=== PATIENT | female | born 2000 | race Caucasian/White ===

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

== ENCOUNTER 2020-11-18 11:49 | Emergency (ER) | payer OTHER, SELFPAY ==
[2020-11-18 11:55] VITALS: BP 129/62; PULSE 84; RESP 20; TEMP 36.5; O2SAT 98; BMI 27.4
--- NOTE | 2020-11-18 12:10 | HMH.EDUTC ---
[facility] [place] Impression: Pilonidal abscess, Cellulitis and abscess of buttock Disposition: Home, Self-Care Condition on Discharge: Good Instructions: Cellulitis, DI for Pilonidal Cyst Drainage or Removal Additional Instructions: Follow up with your primary care physician. Follow up with your surgeon. I put in a referral to Dr. Edge (surgeon that you saw before), please call his office for any appointment. Take the medications as directed. GO TO THE ER FOR ANY WORSENING SYMPTOMS OR CONCERNS, ESPECIALLY ANY FEVER, CHILLS OR SIGNS OF WORSENING INFECTION FOLLOW UP IN 3 DAYS TO HAVE THE PACKING REMOVED. Prescriptions: Ibuprofen [Ibuprofen 800mg Tablet] 800 mg PO Q8HP PRN #30 tab PRN Reason: Moderate Pain Transmission Status: Received by [facility]/pharmacy #[id number] Sulfamethoxazole/Trimethoprim [Bactrim DS tablet] 1 each PO BID 10 Days #20 tab Transmission Status: Received by [facility]/pharmacy #[id number] cephALEXin [cephALEXin 500mg capsule] 500 mg PO Q6H 10 Days #40 cap Transmission Status: Received by [facility]/pharmacy #[id number] Referrals: PCP,No [Primary Care Provider] - Forms: Work/School Release Time of Disposition: 12:54 Medical Decision Making - Medical Records Medical records reviewed: No: I reviewed the patient's medical records. - Larry Inquiry Pt receiving controlled substance: No Vital Signs: 11/18/20 11:55 11/18/20 12:55 Temperature 97.7 F 97.7 F Temperature Source Oral Pulse Rate 84 Pulse Rate [Right Brachial] 84 Respiratory Rate 20 20 Blood Pressure 129/62 Blood Pressure [Right Arm] 129/62 Blood Pressure Mean [Right Arm] 84 Blood Pressure Source [Right Arm] Automatic Cuff Blood Pressure Position [Right Arm] Sitting 02 Sat by Pulse Oximetry 98 Oxygen Delivery Method Room Air Orders (Tests/Meds): ORDERS Category Date Time Status Wound Culture and Gram Stain Stat Micro 11/18/20 12:50 [place] [facility] [place] - General Stated complaint: cyst on buttocks, top of tailbone Time Seen by Provider: 11/18/20 12:10 Mode of Arrival: Ambulatory Source of Information: Patient Limitations: No Limitations Description of Symptoms (Recalled from Triage Doc. by RN): PATIENT C/O CYST ON TAILBONE X 1 WEEK HEENT Symptoms (Recalled from RN notes): No Resp Symptoms (Recalled from RN notes): No Skin Symptoms (Recalled from RN notes): Yes MS Symptoms (Recalled from RN notes): No Functional Status (Recalled from RN notes): WNL - History of Present Illness Provider Complaint: She states that for the past 1 week she has had a painful area of swelling near the tip of her coccyx. She has had to have pilonidal cysts i&d'd multiple times in her life. The last times was around 2 years ago. She denies any fever or chills or complaints. - Related Data Previous Rx's Medication Instructions Recorded Ibuprofen [Ibuprofen 800mg 800 mg PO Q8HP PRN #30 tab 11/18/20 Tablet] Sulfamethoxazole/Trimethoprim 1 each PO BID 10 Days #20 tab 11/18/20 [Bactrim DS tablet] cephALEXin [cephALEXin 500mg 500 mg PO Q6H 10 Days #40 cap 11/18/20 capsule] Allergies Allergy/AdvReac Type Severity Reaction Status Date / Time No Known Allergies Allergy Verified 11/14/18 10:03 - Worker's Comp Is this a Worker's Comp case?: No [facility] History - Hepatitis A Screen Drug use history?: No High risk sexual behaviors?: No History of sexually transmitted infection?: No Currently employed?: No Childcare worker?: No Do you have indoor plumbing?: Yes Do you have electricity?: Yes Attestation statement:: This patient has been screened for Hepatitis A risk factors. I have reviewed the patient's past medical history: Yes Medical History: Denies:: Cancer, Diabetes Mellitus Type 1, Diabetes Mellitus Type 2, MRSA Laterality Cases: Bilateral: Tonsillectomy Amputation: No Fractures: No - Social History Smoking Status: Current every day smoker Tobacco Type: cigarettes # Packs/Day (cigarettes)
[2020-11-18 12:55] VITALS: BP 129/62; PULSE 84; RESP 20; TEMP 36.5; O2SAT 98
== END 2020-11-18 12:58 | disposition home or self-care (01) ==
PROVIDERS: Emergency Provider Nurse Practitioner Family
DX: L05.01 Pilonidal cyst with abscess (principal); F17.210 Nicotine dependence, cigarettes, uncomplicated
CPT/HCPCS: 10080; 87070; 87077; 87186; 87205; 99202; G0463

== ENCOUNTER 2021-01-26 20:14 | Emergency (ER) | payer OTHER, SELFPAY ==
[2021-01-26 20:20] VITALS: BP 117/78; PULSE 99; RESP 16; TEMP 36.7; O2SAT 99; BMI 27.3
[2021-01-26 20:32] VITALS: BP 117/78; PULSE 99; RESP 16; TEMP 36.7; O2SAT 99; BMI 27.4
--- NOTE | 2021-01-26 20:40 | HMH.EDUTC ---
[facility] [place] Clinical [place]ression: Allergic reaction Qualifiers: Encounter type: initial encounter Qualified Code(s): T78.40XA - Allergy, unspecified, initial encounter Disposition: Home, Self-Care Condition on Discharge: Fair Instructions: DI for General Allergic Reactions, DI for Pereira, Prednisone, Cephalexin Additional Instructions: Apply neosporin to pereira on scalp, may apply to fingers and then work your way onto the skin to burn areas on your scalp Take medication as prescribed Start oral steriods tomorrow Follow up with your Family Doctor for further evaluation and make sure that areas are healing Follow up with Dermatology for further evaluation and treatment if needed Straight to ER if any life threatening symptoms Be careful washing your hair Follow up immediately if any worsening of swelling or fever Prescriptions: cephALEXin [cephALEXin 500mg capsule*] 500 mg PO Q6H 10 Days #40 cap Transmission Status: Pending to [id number] predniSONE [Prednisone 10mg Tab Dose-Pack] 10 mg PO UD DOSE PK 6 Days #21 pack Transmission Status: Pending to [id number] Referrals: PCP,No [Primary Care Provider] - As needed Danile Mendoza MD [Referring] - As needed (Call office for appointment your referral was sent) Forms: Work/School Release Time of Disposition: 21:03 Medical Decision Making - Larry Inquiry Pt receiving controlled substance: No Larry was queried for this patient: No Vital Signs: 01/26/21 20:20 01/26/21 20:32 Temperature 98.1 F 98.1 F Temperature Source Oral Oral Pulse Rate [Left Radial] 99 H 99 H Respiratory Rate 16 16 Blood Pressure [Left Arm] 117/78 117/78 Blood Pressure Mean [Left Arm] 91 91 Blood Pressure Source [Left Arm] Automatic Cuff Automatic Cuff Blood Pressure Position [Left Arm] Sitting Sitting 02 Sat by Pulse Oximetry 99 99 Oxygen Delivery Method Room Air Room Air Medical Decision Narrative: Patient denies chance of states that she currently just stopped her menstrual period. Patient states that she has had similar reaction to hair dye before and had to shave her head to get lesions in her head to clear up. Due to drainage of yellowish in color concern for infection Patient will be placed on oral Keflex and oral steriods and have patient follow up with Dermatology and/or PCP [facility] [place] - General Stated complaint: reaction from hair dye Time Seen by Provider: 01/26/21 20:40 Mode of Arrival: Ambulatory Source of Information: Patient Description of Symptoms (Recalled from Triage Doc. by RN): Pt reports scalp irritation d/t hair dye. She reports itching to scalp and oozing for 2 or 3 days. Pt denies issues with breathing. Airway patent. Pt reports having same reaction to hait dye when she was 17. - History of Present Illness Provider Complaint: Patient states that she has had reaction to hair dye in the past States that 2-3 days ago she used hair dye on her hair and she had allergic reaction and started having burning in her scalp and swelling with rash on her forehead and swelling on the left side of her forehead States that she immediately rinsed it out and took benadryl States that she has continued to take benadryl on and off but still having rash and swelling in her scalp with oozing from blister like areas on her scalp States that she was worried it was getting infected and when she did this before she had to have steroids to clear it up Denies SOA - Related Data Previous Rx's Medication Instructions Recorded cephALEXin [cephALEXin 500mg 500 mg PO Q6H 10 Days #40 cap 01/26/21 capsule*] predniSONE [Prednisone 10mg Tab 10 mg PO UD DOSE PK 6 Days #21 pack 01/26/21 Dose-Pack] Allergies Allergy/AdvReac Type Severity Reaction Status Date / Time No Known Allergies Allergy Verified 11/14/18 10:03 - Worker's Comp Is this a Worker's Comp case?: No H History - Hepatitis A Screen Drug use history?: No High risk sexual behav
[2021-01-26 20:57] VITALS: BP 117/78; PULSE 99; RESP 16; TEMP 36.7; O2SAT 99
== END 2021-01-26 21:15 | disposition home or self-care (01) ==
LOC: UTC 21:01
PROVIDERS: Emergency Provider Nurse Practitioner
DX: L23.4 Allergic contact dermatitis due to dyes (principal); F17.210 Nicotine dependence, cigarettes, uncomplicated
CPT/HCPCS: 96372; 99202; G0463

== ENCOUNTER 2021-01-27 09:44 | Emergency (ER) | payer OTHER, SELFPAY ==
--- NOTE | 2021-01-27 09:59 | HMH.EDUTC ---
[facility] [place] Impression: Allergic reaction to hair dye Disposition: Home, Self-Care Condition on Discharge: Good Instructions: DI for Adverse Drug Reaction -- Allergic Additional Instructions: Get started on the medications that were prescribed on your visit last night. Start the oral steroids either this evening or in the morning. If you have any chest tightness or difficulty breathing, please go straight to the er. Referrals: PCP,No [Primary Care Provider] - Forms: Work/School Release Time of Disposition: 10:31 Medical Decision Making - Medical Records Medical records reviewed: No: I reviewed the patient's medical records. - Larry Inquiry Pt receiving controlled substance: No Vital Signs: 01/27/21 10:02 01/27/21 10:26 Temperature 98.5 F 98.5 F Temperature Source Oral Pulse Rate 92 H Pulse Rate [Right] 100 H Respiratory Rate 14 18 Blood Pressure 122/95 H Blood Pressure [Right Arm] 125/106 H Blood Pressure Mean [Right Arm] 112 Blood Pressure Source [Right Arm] Automatic Cuff Blood Pressure Position [Right Arm] Sitting 02 Sat by Pulse Oximetry 98 Oxygen Delivery Method Room Air Orders (Tests/Meds): ED MEDICATIONS Discontinued Medications Generic Name Dose Route Start Last Admin Trade Name Cabreraq PRN Reason Stop Dose Admin Methylprednisolone Sodium Succinate 62.5 mg 01/27/21 10:16 01/27/21 10:26 Methylprednisolone Sod Succ 125mg Vial IM 01/27/21 10:17 62.5 mg ONCE ONE [facility] [place] - General Stated complaint: face swollen,SOA Time Seen by Provider: 01/27/21 10:10 - History of Present Illness Provider Complaint: She tried to dye her hair 4 days ago. She has a history of having allergic reaction to hair dyes. She began to have breakout and itching of the scalp afterwards. Since then she has had swelling and outbreak of her scalp and some facial swelling. She was in this [facility] last night and was given steroid shot and prescribed medication. She has not started or picked up her prescribed medication. She returned here today for some continued facial swelling. She denies any shortness of breath and mouth swelling. - Related Data Previous Rx's Medication Instructions Recorded cephALEXin [cephALEXin 500mg 500 mg PO Q6H 10 Days #40 cap 01/26/21 capsule*] predniSONE [Prednisone 10mg Tab 10 mg PO UD DOSE PK 6 Days #21 pack 01/26/21 Dose-Pack] Allergies Allergy/AdvReac Type Severity Reaction Status Date / Time No Known Allergies Allergy Verified 01/27/21 09:45 [facility] History - Hepatitis A Screen Attestation statement:: This patient has been screened for Hepatitis A risk factors. I have reviewed the patient's past medical history: Yes Medical History: Denies:: Cancer, Diabetes Mellitus Type 1, Diabetes Mellitus Type 2, MRSA Laterality Cases: Bilateral: Tonsillectomy Amputation: No Fractures: No - Social History Smoking Status: Current every day smoker Tobacco Type: cigarettes # Packs/Day (cigarettes): 1 Alcohol Intake: never Substance Use Type: denies use Occupational Status: other Housing: house Household Members: family Family Hx:: Asthma, Coronary Artery Disease, Diabetes, Heart Attack, Hyperlipidemia, Hypertension, Stroke ROS Obtained: Yes All systems reviewed & no additional complaints - Constitutional Constitutional: Denies chills, Denies fever(s) - Eyes Eyes: Denies blurry vision, Denies change in vision, Denies eye discharge - ENT Ears, Nose, Mouth, and Throat: Denies dizziness, Denies otalgia, Denies sore throat, Denies vertigo/dizziness - Cardiovascular Cardiovascular: Denies chest pain - Respiratory Respiratory: Denies chest congestion, Denies cough, Denies stridor, Denies wheezing - Gastrointestinal Gastrointestingal: Denies: abdominal pain, diarrhea, nausea, vomiting - Musculoskeletal Musculoskeletal: Denies joint pain, Denies neck pain - Integumentary/Breasts Skin/Breast: Repo
[2021-01-27 10:02] VITALS: BP 125/106; PULSE 100; RESP 14; TEMP 36.9; O2SAT 98; BMI 27.6
[2021-01-27 10:26] VITALS: BP 122/95; PULSE 92; RESP 18; TEMP 36.9
== END 2021-01-27 10:35 | disposition home or self-care (01) ==
PROVIDERS: Emergency Provider Nurse Practitioner Family
DX: L23.4 Allergic contact dermatitis due to dyes (principal); F17.210 Nicotine dependence, cigarettes, uncomplicated
CPT/HCPCS: 96372; 99202; G0463

== ENCOUNTER 2022-07-13 15:18 | Emergency (ER) | payer OTHER, SELFPAY ==
--- NOTE | 2022-07-13 15:49 | EXP.UTC ---
Discharge Plan Disposition Patient Disposition: Home, Self-Care Condition: Good Referrals Follow up/Referrals: Provider,Referral, [Primary Care Provider] - See instructions Activity Restrictions/Add. Instructions Additional Instructions/Restrictions: Keep the wound clean and dry. Watch the for signs of infection, such as redness, swelling, drainage, fever. etc. Take tylenol or ibuprofen for pain. Follow up with your regular doctor. Return in 7 days to have the sutures removed. GO TO THE ER FOR ANY WORSENING SYMPTOMS OR CONCERNS. Clinical Impressions Clinical Impression: Encounter for Nexplanon removal Instructions Patient Instructions: DI for Laceration Repair -- Simple Discharge ED Provider: Kraig Grant [facility] General Stated complaint: irrated control in L AMN Time Seen by Provider: 07/13/22 15:49 History of Present Illness Provider Complaint: She is has a nexplanon implant in her left upper arm. She states that it has been almost 4 years since this was inserted. Her son recently pinched this area of her arm. Since then she has had tenderness at the site. She would like to have it removed. She has not had time to go to her police detention attendant to have it removed because her son has a lot of health issues. Related Data Allergies Allergy/AdvReac Type Severity Reaction Status Date / Time No Known Allergies Allergy Verified 07/13/22 15:59 [facility] Social History Smoking Status: Former smoker alcohol intake: never substance use type: denies use current occupational status: employed Travel in the last 8 weeks: None household members: family housing: house ROS Obtained: Yes All systems reviewed & no additional complaints except as documented Constitutional Constitutional: Reports system reviewed and no additional complaints, except as documented, Denies chills and Denies fever(s) Eyes Eyes: Denies eye discharge ENT Ears, Nose, Mouth, and Throat: Denies dysphagia, Denies sore throat and Denies throat swelling Cardiovascular Cardiovascular: Denies chest pain and Denies dyspnea Respiratory Respiratory: Denies chest congestion, Denies cough and Denies dyspnea Gastrointestinal Gastrointestingal: Denies abdominal pain, constipation, diarrhea, dysphagia, nausea or vomiting Musculoskeletal Musculoskeletal: Denies arthralgias Integumentary/Breasts Skin/Breast: Denies rash Neurologic Neurologic: Denies paresthesias Allergic/Immunologic Allergic/Immunologic: Denies throat swelling Physical Exam General General appearance: alert and in no apparent distress Head Head exam: atraumatic, normocephalic and normal inspection Eye Eye exam: Present normal appearance, PERRL and EOMI ENT ENT exam: Present normal exam, normal oropharynx, mucous membranes moist, TM's normal bilaterally and normal external ear exam Neck Neck exam: Present normal inspection, full ROM and trachea midline; Absent meningismus or lymphadenopathy Chest Chest inspection: Present normal inspection and symmetric chest wall rise; Absent tenderness Respiratory Respiratory exam: Present normal lung sounds bilaterally; Absent respiratory distress Cardiovascular Cardiovascular exam: Present regular rate and normal rhythm; Absent JVD Abdominal Exam Abdominal exam: Present soft and normal bowel sounds; Absent distention, tenderness or guarding Extremities Exam Extremities exam: Present normal inspection, full ROM and normal capillary refill; Absent calf tenderness Back Exam Back exam: Present normal inspection; Absent tenderness Neurological Exam Neurological exam: Present alert and oriented X3 Psychiatric Psychiatric exam: Present normal affect and normal mood Skin Skin exam: Present warm, dry, intact and normal color Lymphatic Lymphatic Findings: no adenopathy Medical Decision Making Medical Records Medical records reviewed: No I reviewed the patient's medical records.
[2022-07-13 15:56] VITALS: BP 145/96; PULSE 88; RESP 16; TEMP 36.9; O2SAT 99; BMI 27.4
[2022-07-13 16:52] VITALS: BP 145/96; PULSE 88; RESP 16; TEMP 36.9
== END 2022-07-13 17:06 | disposition home or self-care (01) ==
PROVIDERS: Emergency Provider Nurse Practitioner Family
DX: Z30.432 Encounter for removal of intrauterine contraceptive device (principal)
CPT/HCPCS: 99212; G0463

== ENCOUNTER 2022-10-31 10:49 | Emergency (ER) | payer OTHER, SELFPAY ==
[2022-10-31 10:51] VITALS: BP 134/71; PULSE 70; RESP 17; TEMP 36.9; O2SAT 100; BMI 22.3
--- NOTE | 2022-10-31 11:32 | HMH.EDGENADL ---
Discharge Plan Disposition Patient Disposition: Home, Self-Care Condition: Good Referrals Follow up/Referrals: Melissa Leiva DO [Staff Physician] - See instructions Provider,MD Alisha [Primary Care Provider] - See instructions Activity Restrictions/Add. Instructions Additional Instructions/Restrictions: No strenuous activity or sexual intercourse for 2 days. Return the emergency department if severe pain or severe bleeding. Follow-up with Dr. Johnson, ASSISTANT [employer]NER, call for appointment. Clinical Impressions Clinical Impression: , threatened Instructions Patient Instructions: DI for Threatened Discharge ED Provider: Gerard Adkins General Adult HPI General Chief complaint: Vaginal Bleeding Stated complaint: about 8 weeks , bleeding, stomach pain Time Seen by Provider: 10/31/22 11:28 Mode of Arrival: Ambulatory Limitations: No Limitations Description of Symptoms (Recalled from ER Triage Doc. 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 STATES SHE WOKE THIS AM WITH LOWER ABDOMINAL PAIN AND BRIGHT RED BLEEDING, HAS SINCE STOPPED History of Present Illness HPI narrative: Patient states that she is , about 6 to 8 weeks based on last normal menstrual period of 08/23/2022, and now has suprapubic abdominal pain and vaginal bleeding. She says symptoms started this morning. The bleeding was spotting, only a few drops of red blood, currently resolved. However, the suprapubic pain has continued. She is 2, para 1. She has had a section. She says that her primary care provider ordered blood work to determine how far along she was in , she had blood work drawn on Saturday, but does not yet know results. Blood work was done at a different facility in [facility]. Related Data Allergies Allergy/AdvReac Type Severity Reaction Status Date / Time No Known Allergies Allergy Verified 07/13/22 15:59 [facility] Disclaimer: The information contained in this section may have been updated after the patient was seen, as this information can be updated by other users. Social History Smoking Status: Former smoker alcohol intake: never substance use type: denies use current occupational status: employed Travel in the last 8 weeks: None household members: family housing: house ROS Obtained: Yes Systems reviewed as appropriate & no additional complaints except as documented Gastrointestinal Gastrointestingal: Reports abdominal pain; Denies vomiting Genitourinary Female Genitourinary: Reports abnormal vaginal bleeding and Denies difficulty voiding Physical Exam General General appearance: alert and in no apparent distress Head Head exam: atraumatic and normocephalic Eye Eye exam: Present normal appearance and EOMI ENT ENT exam: Present mucous membranes moist Neck Neck exam: Present normal inspection and trachea midline Chest Chest inspection: Present normal inspection and symmetric chest wall rise Respiratory Respiratory exam: Absent respiratory distress Cardiovascular Cardiovascular exam: Present regular rate Abdominal Exam Abdominal exam: Present soft and normal bowel sounds; Absent distention, tenderness, guarding, rebound or rigidity Abdominal tenderness: Present RUQ, LLQ and suprapubic Extremities Exam Extremities exam: Present normal inspection Neurological Exam Neurological exam: Present alert and oriented X3 Psychiatric Psychiatric exam: Present normal affect and normal mood Skin Skin exam: Present warm and dry Medical Decision Making Larry Inquiry Pt receiving controlled substance: No Vital Signs: 10/31/22 10:51 10/31/22 12:19 10/31/22 12:31 Temperature 98.4 F Temperature Source Oral Pulse Rate [Radial] 70 Respiratory Rate 17 Blood Pressure 105/68 L 98/48 L Blood Pressure [Right Arm] 134/71 Blood Pressure Mean 83 64 Bloo
--- NOTE | 2022-10-31 11:39 | PC.NURSE ---
rounded on pt to see if there were any needs and pt had no needs at this time
[2022-10-31 11:54] LABS: Basophils # 0.1 K/mm3 (0-0.2); Eosinophils # 0.2 K/mm3 (0.0-0.4); Eosinophils % 2.7 % (0.1-12.0); Hematocrit 42.8 % (37.0-47.0); Lymphocytes # 1.8 K/mm3 (0.7-4.5); Lymphocytes % 23.3 % (10-50); Mean Corpuscular HGB Conc 32.8 g/dL (31.8-35.4); Mean Corpuscular Volume 97.6 fl (81-99); Monocytes # 0.4 K/mm3 (0.1-1.0); Monocytes % 4.6 % (1.7-9.3); Neutrophils # 5.4 K/mm3 (1.8-7.8); Neutrophils % 68.5 % (37.0-80.0); Platelet Count 200 K/mm3 (142-424); Red Blood Count 4.38 M/mm3 (4.20-5.40); Red Cell Distribution Width 12.6 % (11.5-17.5); White Blood Count 7.8 K/mm3 (4.8-10.8)
[2022-10-31 12:07] LABS: Chloride 107 mmol/L (98-107); Sodium 139 mmol/L (136-145)
[2022-10-31 12:08] LABS: Potassium 3.9 mmoL/L (3.5-5.1)
[2022-10-31 12:10] LABS: Alanine Aminotransferase 18 U/L (12-78); Albumin Level 4.6 g/dl (3.5-5.0); Alkaline Phosphatase 44 U/L (38-126); Aspartate Amino Transferase 23 U/L (14-36); Bilirubin,Total 0.5 mg/dl (0.2-1.3); Blood Urea Nitrogen 12 mg/dl (7-17); Creatinine Clearance Estimated 164 mL/min (50-200); Estimated Glomerular Filt Rate 154 ml/min (>60); GFR (African American) 187 ML/MIN (>60)
[2022-10-31 12:11] LABS: Albumin/Globulin Ratio 1.6 (1.1-1.8); Anion Gap 14.9 mEq/L (5-15); Calcium 9.3 mg/dl (8.4-10.2); Carbon Dioxide 21 mmol/L (22.0-30.0); Globulin 2.8 g/dL (1.3-3.2); Glucose 111 mg/dl (74-100); Total Protein,Serum 7.4 g/dl (6.3-8.2)
[2022-10-31 12:19] VITALS: BP 105/68
[2022-10-31 12:31] VITALS: BP 98/48
[2022-10-31 13:00] VITALS: BP 136/95
--- NOTE | 2022-10-31 13:16 | US_ITS ---
FINAL REPORT CLINICAL HISTORY: , pain and bleeding FINDINGS: Transvaginal sonographic images of the pelvis were obtained. A gestational sac is present. A yolk sac and pole are identified. The crown-rump length is 2.7 mm corresponding with 5 weeks 6 days gestation. The heartbeat is identified measuring 104 beats per minute. There is a small amount of fluid adjacent to the gestational sac of uncertain significance. The ovaries are within normal limits. IMPRESSION: Single, living, intrauterine gestation with 5 weeks 6 days ultrasound age. Reviewed, Interpreted and Dictated by Naun Beavers III, MD Transcribed by Temitope Haskins Authenticated and [facility]
--- NOTE | 2022-10-31 13:17 | PC.NURSE ---
RADIOLOGY NOTIFIED OF U/S
[2022-10-31 13:19] LABS: Urine Pregnancy, HCG Qual. Positive (Negative)
--- NOTE | 2022-10-31 13:51 | PC.NURSE ---
pt to us at this time
--- NOTE | 2022-10-31 14:27 | PC.NURSE ---
PT RETURNED FROM US
[2022-10-31 14:45] LABS: Microscopic, Urine URINE MICROSCOPIC (MICROSCOPIC)
[2022-10-31 14:46] LABS: Appearance,Urine SL CLOUDY (Clear); Bilirubin,Urine Negative (Negative); Blood, Urine Negative (Negative); Color,Urine YELLOW (Yellow); Glucose,Urine (UA) Negative (Negative); Ketones,Urine TRACE (Negative); Leukocyte Esterase,Urine 1+ (Negative); Nitrate,Urine Negative (Negative); Protein,Urine Negative (Negative); Specific Gravity, Urine >= 1.030 (1.005-1.030); Urobilinogen,Urine 0.2 EU/dl (0.2)
[2022-10-31 14:51] LABS: Bacteria,Urine 1+ /lpf; RBC,Urine Occasional #/hpf (0-3)
--- NOTE | 2022-10-31 15:03 | PC.NURSE ---
DR. ROLDAN AT BEDSIDE TO UPDATE PT ON POC
--- NOTE | 2022-10-31 15:07 | PC.NURSE ---
ER Doctor needed to speak to whomever was controls project engineer for OBGYN. Made contact with Dr. Leiva and she was with a pt but would call back as soon as she come out
--- NOTE | 2022-10-31 15:09 | PC.NURSE ---
Dr Leiva called to speak with ER Doctor
--- NOTE | 2022-10-31 15:50 | PC.NURSE ---
DR. ROLDAN AT BEDSIDE TO DISCUSS RHOGAM WITH PT, LAB STATES PT IS A POSITIVE
[2022-10-31 15:55] VITALS: BP 122/78; PULSE 75; RESP 17; TEMP 36.8; O2SAT 99
--- NOTE | 2022-11-26 13:41 | PC.NURSE ---
attempted to call this pt about follow up care. No answer on multiple occasions.
== END 2022-10-31 15:55 | disposition home or self-care (01) ==
PROVIDERS: Emergency Provider Emergency Medicine
DX: O20.0 Threatened abortion (principal)
CPT/HCPCS: 36415; 76817; 80053; 81001; 81025; 84702; 85025; 86850; 87086; 87088; 87186; 99285

== ENCOUNTER → 2023-03-11 14:38 | Outpatient (CLI) | payer OTHER, SELFPAY ==
--- NOTE | 2023-03-11 14:38 | US_ITS ---
FINAL REPORT CLINICAL HISTORY: 20 week anatomy scan please use anatomy scan template FINDINGS: There is a single live intrauterine gestation. Presentation is cephalic. The cervix is closed and measures 2.8 cm. Placenta is anterior and grade 1. movement is noted. Cardiac activity is confirmed at 139 beats per minute. A cardiac arrhythmia is noted. Three-vessel cord with satisfactory umbilical cord insertion. Four-chamber heart is noted. brain and ventricles are unremarkable. Chest and diaphragm are unremarkable. ABDOMEN: Both kidneys are unremarkable. Stomach is unremarkable. SPINE: No anomalies identified. Both arms and legs noted. AMNIOTIC FLUID: Appropriate amount. MEASUREMENTS: ULTRASOUND AGE: 24 weeks 2 days. GESTATION AGE: 24 weeks 4 days. BPD: 6.0 cm consistent with 24 weeks 5 days. OFD: 7.4 cm consistent with 23 weeks 5 days. HC: 21.3 cm consistent with 23 weeks 3 days. FL: 4.5 cm consistent with 24 weeks 5 days. CEREBELLUM: 2.5 cm consistent with 24 weeks 4 days. HUMERUS: 4.0 cm consistent with 24 weeks 2 days. CI: 81% FL/BPD: 74% IMPRESSION: Single living IUP with an ultrasound age of 24 weeks 2 days. Heart arrhythmia noted. Recommend continued follow-up. Reviewed, Interpreted and Dictated by Naun Beavers III, MD Transcribed by Luiz Palmer Authenticated and . [facility]
[2023-03-11 16:51] LABS: Basophils % 0.4 % (0.1-2.0); Eosinophils # 0.1 K/mm3 (0.0-0.4); Eosinophils % 0.9 % (0.1-12.0); Hematocrit 38.2 % (37.0-47.0); Lymphocytes # 2.6 K/mm3 (0.7-4.5); Lymphocytes % 21.9 % (10-50); Mean Corpuscular HGB Conc 33.9 g/dL (31.8-35.4); Mean Corpuscular Volume 94.4 fl (81-99); Monocytes # 0.6 K/mm3 (0.1-1.0); Monocytes % 4.6 % (1.7-9.3); Neutrophils # 8.7 K/mm3 (1.8-7.8); Neutrophils % 72.3 % (37.0-80.0); Platelet Count 264 K/mm3 (142-424); Red Blood Count 4.05 M/mm3 (4.20-5.40); Red Cell Distribution Width 12.6 % (11.5-17.5)
[2023-03-13 12:19] LABS: Rapid Plasma Reagin Ab Titer Non Reactive (NonRea<1:1)
[2023-05-03 23:34] LABS: HIV Screen 4th Generation wRfx Non Reactive; Hepatitis B Surface Antigen Negative; Hepatitis C Antibody Non Reactive
== END ==
PROVIDERS: PCP Obstetrics & Gynecology; Visit Provider Obstetrics & Gynecology
DX: Z34.90 Encounter for supervision of normal pregnancy, unspecified, unspecified trimester (principal); Z3A.20 20 weeks gestation of pregnancy
CPT/HCPCS: 36415; 76811; 85025; 86593; 86703; 86762; 86850; 87340; 87380; G0432

== ENCOUNTER → 2023-04-08 09:54 | Outpatient (CLI) | payer OTHER, SELFPAY ==
[2023-04-08 10:23] LABS: Basophils % 0.3 % (0.1-2.0); Eosinophils # 0.1 K/mm3 (0.0-0.4); Eosinophils % 1.5 % (0.1-12.0); Hematocrit 35.7 % (37.0-47.0); Lymphocytes # 1.9 K/mm3 (0.7-4.5); Lymphocytes % 21.3 % (10-50); Mean Corpuscular HGB Conc 33.5 g/dL (31.8-35.4); Mean Corpuscular Volume 92.5 fl (81-99); Mean Platelet Volume 7.8 fl (7.4-10.4); Monocytes # 0.4 K/mm3 (0.1-1.0); Monocytes % 4.2 % (1.7-9.3); Neutrophils # 6.5 K/mm3 (1.8-7.8); Neutrophils % 72.7 % (37.0-80.0); Platelet Count 239 K/mm3 (142-424); Red Blood Count 3.85 M/mm3 (4.20-5.40); Red Cell Distribution Width 12.5 % (11.5-17.5)
[2023-04-08 10:36] LABS: Glucose,Fasting 90 mg/dl (74-100)
[2023-04-08 11:54] LABS: Glucose 1 Hour 167 mg/dL (74-100)
== END ==
PROVIDERS: Visit Provider Obstetrics & Gynecology
DX: Z34.92 Encounter for supervision of normal pregnancy, unspecified, second trimester (principal); Z3A.28 28 weeks gestation of pregnancy
CPT/HCPCS: 36415; 82951; 85025

== ENCOUNTER → 2023-04-12 07:01 | Outpatient (CLI) | payer OTHER, SELFPAY ==
[2023-04-12 07:42] LABS: Glucose,Fasting 92 mg/dl (74-100)
[2023-04-12 09:03] LABS: Glucose 1 Hour 183 mg/dL (74-100)
[2023-04-12 10:05] LABS: Glucose 2 Hour 101 mg/dL (74-100)
[2023-04-12 11:16] LABS: Glucose 3 Hour 79 mg/dL (74-100)
== END ==
PROVIDERS: Visit Provider Obstetrics & Gynecology
DX: Z34.93 Encounter for supervision of normal pregnancy, unspecified, third trimester (principal); Z3A.30 30 weeks gestation of pregnancy
CPT/HCPCS: 36415; 82951

== ENCOUNTER 2023-06-14 13:23 | Outpatient (CLI) | payer OTHER, SELFPAY ==
[2023-06-14 13:44] VITALS: BP 100/61; PULSE 98; RESP 18; TEMP 36.9; O2SAT 97; BMI 26.6
[2023-06-14 14:22] LABS: Microscopic, Urine URINE MICROSCOPIC (MICROSCOPIC)
[2023-06-14 14:28] LABS: Appearance,Urine CLEAR (Clear); Bilirubin,Urine Negative (Negative); Blood, Urine Negative (Negative); Color,Urine YELLOW (Yellow); Glucose,Urine (UA) Negative (Negative); Ketones,Urine Negative (Negative); Leukocyte Esterase,Urine Negative (Negative); Nitrate,Urine Negative (Negative); PH,Urine 6.5 (5.0-8.5); Protein,Urine Negative (Negative); Specific Gravity, Urine 1.015 (1.005-1.030); Urobilinogen,Urine 0.2 EU/dl (0.2)
[2023-06-14 14:33] LABS: Fetal Membrane Rupture (Rapid) Negative (Negative)
[2023-06-14 14:39] LABS: Amphetamine/Metha Screen,Urine Negative ng/ml (<1000); Barbiturates Screen,Urine Negative ng/ml (<200)
[2023-06-14 14:40] LABS: Benzodiazepines Screen,Urine Negative ng/ml (<200)
[2023-06-14 14:41] LABS: Cannabinoid Screen,Urine Positive ng/ml (<50); Cocaine Screen,Urine Negative ng/ml (<300)
[2023-06-14 14:42] LABS: Methadone Screen,Urine Negative ng/ml (<300); Opiate Screen,Urine Negative ng/ml (<300)
[2023-06-14 14:43] LABS: Phencyclidine Screen,Urine Negative ng/ml (<25)
[2023-06-14 14:49] LABS: Bacteria,Urine 1+ /lpf; Squamous Epithelial Cell,Urine 20-50 #/hpf (0-5)
== END 2023-06-14 15:04 | disposition home or self-care (01) ==
LOC: OBOUT 13:24 → OB 13:25
PROVIDERS: Visit Provider Obstetrics & Gynecology
DX: O26.893 Other specified pregnancy related conditions, third trimester (principal); Z3A.38 38 weeks gestation of pregnancy
CPT/HCPCS: 59025; 80305; 81001; 84112

== ENCOUNTER 2023-06-20 04:54 | Inpatient (IN) | payer OTHER, SELFPAY ==
[2023-06-20] VITALS (7 sets, daily range): BP systolic 101–126; BP diastolic 56–79; PULSE 71–119; RESP 12–19; TEMP 36.4–36.9; O2SAT 97–100; BMI 26.6
[2023-06-20 05:54] LABS: Microscopic, Urine URINE MICROSCOPIC (MICROSCOPIC)
[2023-06-20 05:55] LABS: Basophils % 0.3 % (0.1-2.0); Eosinophils # 0.1 K/mm3 (0.0-0.4); Eosinophils % 2.1 % (0.1-12.0); Hemoglobin 12.6 g/dL (12.2-16.2); Lymphocytes # 1.5 K/mm3 (0.7-4.5); Lymphocytes % 24.3 % (10-50); Mean Corpuscular HGB Conc 33.1 g/dL (31.8-35.4); Mean Corpuscular Hemoglobin 31.6 pg (27.0-31.2); Mean Corpuscular Volume 95.4 fl (81-99); Mean Platelet Volume 8.3 fl (7.4-10.4); Monocytes # 0.5 K/mm3 (0.1-1.0); Monocytes % 8.7 % (1.7-9.3); Neutrophils % 64.7 % (37.0-80.0); Platelet Count 244 K/mm3 (142-424); Red Blood Count 3.99 M/mm3 (4.20-5.40); Red Cell Distribution Width 12.7 % (11.5-17.5); White Blood Count 6.2 K/mm3 (4.8-10.8)
[2023-06-20 06:07] LABS: Appearance,Urine Slightly Cloudy (Clear); Bilirubin,Urine Negative (Negative); Blood, Urine Negative (Negative); Color,Urine Yellow (Yellow); Glucose,Urine (UA) Negative (Negative); Ketones,Urine 1+ (Negative); Leukocyte Esterase,Urine 2+ (Negative); Nitrate,Urine Negative (Negative); Protein,Urine 1+ (Negative); Urobilinogen,Urine 0.2 EU/dl (0.2)
[2023-06-20 06:14] LABS: Bacteria,Urine 1+ /lpf; Squamous Epithelial Cell,Urine Occasional #/hpf (0-5)
[2023-06-20 06:18] LABS: Alanine Aminotransferase 21 U/L (12-78); Albumin/Globulin Ratio 1.1 (1.1-1.8); Alkaline Phosphatase 163 U/L (38-126); Anion Gap 16.9 mEq/L (5-15); Aspartate Amino Transferase 26 U/L (14-36); Bilirubin,Total 0.4 mg/dl (0.2-1.3); Blood Urea Nitrogen 9 mg/dl (7-17); Calcium 9.2 mg/dl (8.4-10.2); Carbon Dioxide 18 mmol/L (22.0-30.0); Chloride 102 mmol/L (98-107); Creatinine Clearance Estimated 162 mL/min (50-200); Estimated Glomerular Filt Rate 124 ml/min (>60); GFR (African American) 150 ML/MIN (>60); Globulin 3.6 g/dL (1.3-3.2); Glucose 100 mg/dl (74-100); Potassium 3.9 mmoL/L (3.5-5.1); Sodium 133 mmol/L (136-145); Total Protein,Serum 7.6 g/dl (6.3-8.2)
--- NOTE | 2023-06-20 07:03 | EXP.ANES.CKL ---
[facility] Disclaimer: The information contained in this section may have been updated after the patient was seen, as this information can be updated by other users. Medical History Family history of autistic disorder Family history of Marfan syndrome with prior complicated , antepartum Request for sterilization Tobacco use affecting , antepartum Vaping nicotine dependence, tobacco product Surgical History Hx of section Hx of tonsillectomy Family History Other Cancer Coronary artery disease Stroke Substance abuse Social History Smoking Status: Current every day smoker tobacco type: e-cigarettes alcohol intake: never substance use type: denies use current occupational status: unemployed Travel in the last 8 weeks: None adopted: No caregiver/support person: No foster care: No household members: family housing: house lives independently: Yes marital status: service: No intermediate: No do you feel safe at home: Yes victim of physical abuse: No victim of emotional abuse: No victim of sexual abuse: No [facility] Anesthesia Checklist Patient Identification Patient Identification: Arm Band and Verbal (Name & ) Structural Data Admitted From: Inpatient Planned Operative Procedure/s: C/section Consent for Planned Operative Procedure(s) Verified: Yes NPO Status Verified Time NPO: 00:00 Additional verifications Patient : Yes Anesthesia Reactions: No Airway Assessment Mallampati Score:: Class I C-Spine Mobility Assessed: Yes TMJ Mobility Assessed: Yes Dentition: Good Dentition Neurological Assessment Level of Consciousness: Awake Hx Seizures: No Numbness or tingling in extremities: No Anesthesia Plan Anesthesia Risk discussed: Yes Anesthesia Plan: Verified ASA Class: II Anesthesia Type: Spinal
--- NOTE | 2023-06-20 07:13 | EXP.OB.APHP ---
OB - H&P: HPI Antepartum History of Present Illness Chief complaint: Scheduled repeat History of present illness: Mrs Nora Tipton is a 23 yo at 39w0d who presents to [facility] for scheduled repeat and tubal ligation. First visit was 24 weeks. She had good care from that visit on. History of x 1. She is complete with childbearing and desires permanent sterilization. History of Present Criteria for establishing EDC:: based on 1st trimester US only Ultrasounds: normal mid trimester US Obstetrical complications: none Medical complications: none Labs Blood type: A (+) positive Rubella: immune RPR/VDRL: nonreactive [facility]BsAG: [facility] Disclaimer: The information contained in this section may have been updated after the patient was seen, as this information can be updated by other users. Medical History 39 weeks gestation of Family history of autistic disorder Family history of Marfan syndrome with prior complicated , antepartum Request for sterilization Tobacco use affecting , antepartum Vaping nicotine dependence, tobacco product Surgical History Hx of section Hx of tonsillectomy Family History Other Cancer Coronary artery disease Stroke Substance abuse Social History Smoking Status: Current every day smoker tobacco type: e-cigarettes alcohol intake: never substance use type: denies use current occupational status: unemployed Travel in the last 8 weeks: None adopted: No caregiver/support person: No foster care: No household members: family housing: house lives independently: Yes marital status: service: No fpc: No do you feel safe at home: Yes victim of physical abuse: No victim of emotional abuse: No victim of sexual abuse: No Review of Systems Review of Systems Review of systems:: pertinent systems reviewed and negative unless documented below Meds Home Medications and Allergies Home Medications Medication Instructions Recorded Confirmed Type vit no.95-ferrous 1 tab PO DAILY Supplement 06/20/23 06/20/23 History fumarate 28 mg-folic acid 800 mcg tablet () New Prescriptions to Start Prescriptions: Allergies Allergy/AdvReac Type Severity Reaction Status Date / Time No Known Allergies Allergy Verified 06/14/23 09:04 OB - H&P: Exam Physical Exam Vital signs: Temp Pulse Resp BP Pulse Ox O2 Del Method 98.0 F 119 H 19 126/71 98 Room Air 06/20/23 05:05 06/20/23 05:05 06/20/23 05:05 06/20/23 05:05 06/20/23 05:05 06/20/23 05:05 Routine HEENT Exam Head: Present normocephalic and atraumatic Eye: Absent conjunctivae pink ENT: Present mucous membranes moist Routine Neck Exam Present full ROM Routine Respiratory Exam Present CTA bilaterally and normal respiratory effort Routine Cardiovascular Exam Present RRR Routine Abdominal Exam Present soft (Gravid); Absent tenderness Routine Rectal Exam Patient deferred: visual exam Routine Exam Patient deferred: external exam Routine Extremities Exam Present full ROM; Absent edema or calf tenderness Routine Neurological Exam Present alert, oriented X3 and moving all extremities Routine Psychiatric Exam Present normal affect and cooperative OB - Results Labs Labs: Short CBC 06/20/23 Range/Units 05:40 WBC 6.2 (4.8-10.8) K/mm3 Hgb 12.6 (12.2-16.2) g/dL Hct 38.0 (37.0-47.0) % Plt Count 244 (142-424) K/mm3 BMP 06/20/23 05:40 Sodium 133 L Potassium 3.9 Chloride 102 Carbon Dioxide 18 L BUN 9 Creatinine 0.60 Glucose 100 Calcium 9.2 Liver Function 06/20/23 Range/Units 05:40 Total Bilirubin 0.4 (0.2-1.3) mg/
[2023-06-20 07:59] LABS: Benzodiazepines Screen,Urine Negative ng/ml (<200)
[2023-06-20 08:00] LABS: Amphetamine/Metha Screen,Urine Negative ng/ml (<1000); Barbiturates Screen,Urine Negative ng/ml (<200)
[2023-06-20 08:01] LABS: Methadone Screen,Urine Negative ng/ml (<300)
[2023-06-20 08:02] LABS: Cannabinoid Screen,Urine Positive ng/ml (<50); Cocaine Screen,Urine Negative ng/ml (<300)
[2023-06-20 08:03] LABS: Opiate Screen,Urine Negative ng/ml (<300); Phencyclidine Screen,Urine Negative ng/ml (<25)
--- NOTE | 2023-06-20 09:00 | P.PNANES_ITS ---
[facility] Anesthesia Record Part I Anesthesia Record I Intake, IV Amount: 1,200 Hydration: Adequate Estimated blood loss (mL): 700 Urine output (mL): 100 Blood Pressure: 103/56 SaO2: 99 Pulse Rate: 82 Airway Patency: Patent Respiratory Rate: 12 Temperature: 97.6 F Patient is:: Awake Stable to PACU at:: 09:00
--- NOTE | 2023-06-20 09:24 | EXP.OP.NOTE ---
Date of procedure: 06/20/23 Pre-op Diagnosis:: 1. IUP at 39w0d 2. History of x 1 3. Complete family status, desires permanent sterilization Post-op Diagnosis:: 1. IUP at 39w0d 2. History of x 1 3. Complete family status, desires permanent sterilization Procedure performed:: Repeat Low Transverse Section with Bilateral partial salpingectomy Surgeon:: Melissa Leiva DO Pesticide Use Medical Coordinator(s):: Riya Monroe DO CLOTH PICKER:: Marie Cameron Anesthesia: spinal Estimated blood loss (mL): 700 Clinical Note:: Mrs Nora Tipton is a 23 yo at 39w0d who presents to [facility] for scheduled repeat and tubal ligation. First visit was 24 weeks. She had good care from that visit on. History of x 1. She is complete with childbearing and desires permanent sterilization. Operative findings:: 1. Live female baby, (Yanet) weighing 6 lb 4 oz, AGPARs 9, 9 2. Nuchal cord x 1 3. Grossly normal appearing uterus, bilateral fallopian tubes and ovaries Operative note:: The risks, benefits and alternatives of the procedure were reviewed with the patient. Informed consent was obtained. Patient was taken to the operating room where epidural was bolused. The patient received 2 grams of Ancef preoperatively. Patient was placed in dorsal supine position with a leftward tilt. SCDs in place. Cruz catheter was inserted and draining clear urine prior to the start of the procedure. heart tones were obtained. Patient was then prepped and draped in normal sterile fashion. Allis clamp test was performed to ensure adequate anesthesia. A Pfannenstiel skin incision was made 2 cm above pubic symphysis at prior pfannenstiel incision site. This was carried through to underlying layer of fascia. Fascia was incised in midline, extended laterally with Ceballos scissors. Superior aspect of fascial incision was grasped with two Tre clamps, elevated up, and rectus muscle dissected off bluntly and sharply with Ceballos scissors. The retcus muscle was then in the midline and the peritoneum was entered bluntly with a digit. Peritoneal incision was then extended superiorly and inferiorly with good visualization of the bladder. Tristen retractor was inserted. The lower uterine segment was incised in a transverse fashion. Clear amniotic fluid was noted. Head was delivered without difficulty. Nuchal x 1 was easily reduced. Remainder of body was delivered without difficulty. Mouth and nares were bulb suctioned. Spontaneous cry was noted. Delayed cord clamping was performed for 60 seconds. The umbilical cord was clamped and cut. The was handed to awaiting pediatric staff in stable condition. Dr. Sánchez was present. Apgars were 9(1 min), 9(5 min). Cord blood was obtained. Placenta was extracted manually and intact. Uterus was cleared of all clots and debris with a moist laparotomy sponge. Corners of the uterine incision were grasped with Allis clamps. The uterine incision was reapproximated with # 1 Vicryl suture in a running, locked stitch. Second layer of the same stitch was used to imbricate the incision. Hemostasis was noted. Posterior cul-de-sac was cleaned with moist laparotomy sponge. Gutters cleared of all clots and debris with a moist laparotomy sponge. Attention was then turned to the left fallopian tube, which was grasped with a Jose clamp and avascular space below the tub was entered using a hemostat. The tube was doubly clamped using hemostat and the portion between the clamps was removed using Metzenbaum scissors. The proximal and distal ends of the tube were doubly suture ligated with 0 Chromic. Same procedure was carried out on the contralateral side. Reinspection of the lower uterine segment demonstrated small amount of oozing. Alphonso was applied over uterine incision. Hemostasis was noted. At this point all instruments and sponges were removed from the pelvis.? The peritoneum was grasped with Whitney clamps x 3. The peritoneum
[2023-06-21 03:30] VITALS: BP 124/73; PULSE 72; RESP 18; TEMP 36.7; O2SAT 100
[2023-06-21 07:02] LABS: Basophils % 0.3 % (0.1-2.0); Eosinophils # 0.1 K/mm3 (0.0-0.4); Eosinophils % 0.9 % (0.1-12.0); Hematocrit 34.2 % (37.0-47.0); Hemoglobin 11.5 g/dL (12.2-16.2); Lymphocytes % 18.4 % (10-50); Mean Corpuscular HGB Conc 33.7 g/dL (31.8-35.4); Mean Corpuscular Hemoglobin 31.8 pg (27.0-31.2); Mean Corpuscular Volume 94.5 fl (81-99); Mean Platelet Volume 8.4 fl (7.4-10.4); Monocytes # 0.6 K/mm3 (0.1-1.0); Monocytes % 5.1 % (1.7-9.3); Neutrophils # 8.1 K/mm3 (1.8-7.8); Neutrophils % 75.3 % (37.0-80.0); Platelet Count 200 K/mm3 (142-424); Red Blood Count 3.62 M/mm3 (4.20-5.40); Red Cell Distribution Width 12.5 % (11.5-17.5); White Blood Count 10.8 K/mm3 (4.8-10.8)
[2023-06-21 08:10] VITALS: BP 126/76; PULSE 89; RESP 14; TEMP 36.5; O2SAT 99
--- NOTE | 2023-06-21 08:31 | EXP.ACUTE.PN ---
Subjective *Date: 06/21/23 *Time: 08:31 Interval history: POD # 1 s/p RLTCS with BPS Sitting in bed comfortably. Pain is controlled. Lochia appropriate. She is breast and supplemental formula feeding. Voiding without difficulty and passing flatus. She had a BM. Tolerating regular diet. No fever/chills, chest pain or shortness of breath. Denies headaches, vision changes and swelling. She is ambulating well ad vincenzo. Medical Exam Vital signs and Labs for Last 24 Hours: Vital Signs Temp Pulse Pulse Resp BP BP Pulse Ox 06/21/23 08:10 97.7 F 89 14 126/76 99 06/21/23 03:30 98.1 F 72 18 124/73 100 06/20/23 20:15 98.4 F 84 17 109/56 L 97 06/20/23 09:30 81 18 110/60 98 06/20/23 09:20 75 18 103/61 L 98 06/20/23 09:10 73 18 111/79 99 06/20/23 09:00 97.9 F 71 18 101/71 L 100 06/20/23 09:03 97.6 F 82 12 103/56 L O2 Del Method 06/21/23 08:10 Room Air 06/21/23 03:30 Room Air 06/20/23 20:15 Room Air 06/20/23 09:30 Room Air 06/20/23 09:20 Room Air 06/20/23 09:10 Room Air 06/20/23 09:00 Room Air 06/20/23 09:03 Intake and Output 06/20/23 06/21/23 06/21/23 23:59 07:59 15:59 Output Total 600 / 600 Balance -600 / 600 Output: Output, Urine Amount (Catheter) 600 / 600 Cruz 600 / 600 Laboratory Results - last 24 hr 06/21/23 06:50: WBC 10.8 D, RBC 3.62 L, Hgb 11.5 L, Hct 34.2 L, MCV 94.5, MCH 31.8 H, MCHC 33.7, RDW 12.5, Plt Count 200, MPV 8.4, Neut % (Auto) 75.3, Lymph % (Auto) 18.4, Blaine % (Auto) 5.1, Eos % (Auto) 0.9, Baso % (Auto) 0.3, Neut # (Auto) 8.1 H, Lymph # (Auto) 2.0, Blaine # (Auto) 0.6, Eos # (Auto) 0.1, Baso # (Auto) 0.0 I & O for Labs for Last 24 Hours: Intake & Output 06/18/23 06/19/23 06/20/23 06/21/23 23:59 23:59 23:59 23:59 Intake Total 1200 / 1200 Output Total 600 / 600 Balance 600 / 600 Weight 155 lb Microbiology Reports for the Last 24 Hours: Microbiology 06/20/23 05:00 Urine,Clean Catch Urine Culture - Preliminary NO GROWTH AFTER 24 HOURS Head: Present atraumatic and normocephalic ENT: Present mucous membranes moist Neck: Present full ROM Respiratory: Present CTA bilaterally and normal respiratory effort Cardiac: Present Reg Rate and Rhythm GI: Present soft; Absent distention or tenderness Comments:: Uterine fundus firm and below umbilicus, pfannenstiel incison clean/dry/intact with steri strips in place Rectal (female): Present deferred (female): Present deferred Extremities: Present full ROM; Absent edema or calf tenderness Neuro: Present alert, awake, oriented x 3 and moves all extremities Assessment and Plan *Assessment and plan (1) 39 weeks gestation of : Status: Acute Category: Medical Code(s): Z3A.39 - 39 weeks gestation of (2) Tobacco use affecting , antepartum: Status: Acute Category: Medical Code(s): O99.330 - Smoking (tobacco) complicating , unspecified trimester (3) Hx of section: Status: Acute Category: Surgical Code(s): Z98.891 - History of uterine scar from previous surgery (4) Request for sterilization: Status: Acute Category: Medical Code(s): Z30.2 - Encounter for sterilization (5) Acute blood loss anemia: Status: Acute Category: Medical Code(s): D62 - Acute posthemorrhagic anemia Plan Continue routine care Encouraged increased ambulation Plan d/c home tomorrow
--- NOTE | 2023-06-21 08:38 | P.PNANES_ITS ---
[facility] Anesthesia Record Part II Anesthesia Record Part II Discharge Time: 09:30 Destination: Obstetric PACU nurse assessment reviewed?: Yes Patient Condition:: Good Anesthesia Complications:: None Swallowing reflex intact?: Yes Airway Patency: Patent Cyanosis?: No Blood Pressure: 110/60 SaO2: 98 Respiratory Rate: 18 Pulse Rate: 81 Temperature: 97.9 F Mental Status: Alert & Oriented Pain level:: 0 Nausea and/or vomitting:: None Intake, IV Amount: 0 Hydration: Adequate
[2023-06-21 08:39] VITALS: BP 110/60; PULSE 81; RESP 18; TEMP 36.6; O2SAT 98
--- NOTE | 2023-06-21 09:47 | SW/DCPLANNER ---
Addendum entered by Thao Coulter 06/25/23 08:21: Per OB nursing staff patient and infant discharged home w/ prevention plan from [facility]. Addendum entered by Thao Yfn 06/21/23 11:50: Per Central Intake this case DOES meet criteria for investigation: I have updated OB nursing staff (Kelli). Addendum entered by Thao Yfn 06/21/23 10:08: ID # is [id number] Original Note: I received a consult on this patient regarding late care and positive for THC during . Patient was positive for THC on the following dates: 03/07/23, 06/14/23 and admission 06/20/23. Infants urine drug screen was positive at admission 06/20/23. Infant female (Yanet Elena) was born yesterday 06/20/23. Per patient infant's father (Bradley Elena 11/15/98) is involved. Patient, Bradley, his parents (Duy Leonard and Melissa Elena) along with patient's other son (Bradley Elena Jr 07/20/19) will reside at [address] [place] [address] in [place] [address]. Patient's contact number is [phone]. Patient stated she has not had any past Social Service involvement with Bradley Hardin. Patient has already set up an appointmen w/ WIC. Patient stated that she has the following items at home: crib, carseat, clothing, diapers and will be bottle/breast feeding. Patient confirmed that she will have transportation at time of discharge. PEDS MD will be Dr Sánchez. Patient explained that she was not aware that the CBD vape pens she purchased at [employer] would make her positive for THC. I will report this case to Central Intake. Patient and are planned to discharge home tomorrow pending no setbacks.
[2023-06-21 16:31] VITALS: BP 127/85; PULSE 80; RESP 16; TEMP 36.7; O2SAT 100
[2023-06-21 20:00] VITALS: BP 136/85; PULSE 77; RESP 18; TEMP 36.9; O2SAT 98
[2023-06-22 04:00] VITALS: BP 113/68; PULSE 65; RESP 18; TEMP 36.6; O2SAT 99
--- NOTE | 2023-06-22 11:20 | EXP.DC.SUM ---
General Admission date:: 06/20/23 Discharge date: 06/22/23 HPI HPI HPI: Mrs Nora Tipton is a 23 yo at 39w0d who presents to [facility] for scheduled repeat and tubal ligation. First visit was 24 weeks. She had good care from that visit on. History of x 1. She is complete with childbearing and desires permanent sterilization. Hospital Course Hospital Course Hospital Course: Mrs Nora Tipton is a 23 yo POD#2 from a repeat low-transverse section and bilateral salpingectomy at 39w0d. She is doing well. She is ambulating, voiding, and tolerating p.o. without difficulty or dysuria. She is bottlefeeding and doing well. No questions or concerns voiced at this time. She had a routine course Exam Data for Last 24 hours Vital signs and Labs for Last 24 Hours: Temp Pulse Resp BP Pulse Ox O2 Del Method 97.8 F 65 18 113/68 99 Room Air 06/22/23 04:00 06/22/23 04:00 06/22/23 04:00 06/22/23 04:00 06/22/23 04:00 06/22/23 04:00 I & O for Last 24 hours: Intake & Output 06/19/23 06/20/23 06/21/23 06/22/23 23:59 23:59 23:59 23:59 Intake Total 1200 / 1200 0 / 0 Output Total 600 / 600 Balance 600 / 600 0 / 0 Weight 155 lb Microbiology Reports for the Last 24 Hours: Microbiology 06/20/23 05:00 Urine,Clean Catch Urine Culture - Final NO GROWTH AFTER 48 HOURS Narrative: General: patient is alert oriented in no acute distress and responds appropriately to questions. Appears to be in minimal pain. resting in bed and doing well HEENT: NCAT, EOMI, moist mucous membranes, neck supple with full ROM Cardiovascular: RRR +S1/S2, no murmurs or rubs Pulmonary: Clear to auscultation bilaterally, nonlabored breathing, symmetric chest rise Abdominal: Fundus below the umbilicus, firm, and tenderness appropriate for the period. Extremities: trace edema, no tenderness or cyanosis noted Skin: Normal turgor, intact, warm. Negative for erythema, pallor, petechia, or lesions Neurologic: Negative for sensory or motor deficit Psychiatric: Normal affect, normal thought process, good judgment and insight, no depression or anxious mood appreciated. Incision site: Mildly tender. 3 Steri-Strips on the right side of the incision, clean and dry. No oozing, bleeding, erythema, drainage or signs of infection appreciated. Well-healing incision DS: Diagnosis Discharge Diagnosis (1) 39 weeks gestation of : Status: Acute Code(s): Z3A.39 - 39 weeks gestation of (2) Tobacco use affecting , antepartum: Status: Acute Code(s): O99.330 - Smoking (tobacco) complicating , unspecified trimester (3) Hx of section: Status: Acute Code(s): Z98.891 - History of uterine scar from previous surgery (4) Request for sterilization: Status: Acute Code(s): Z30.2 - Encounter for sterilization (5) Acute blood loss anemia: Status: Acute Code(s): D62 - Acute posthemorrhagic anemia Meds Home Medications and Allergies Home Medications Medication Instructions Recorded Confirmed Type vit no.95-ferrous 1 tab PO DAILY Supplement 06/20/23 06/20/23 History fumarate 28 mg-folic acid 800 mcg tablet () ibuprofen 800 mg tablet 800 mg PO Q8H #30 tabs 06/22/23 Rx sennosides 8.6 mg tablet (Senna 8.6 mg PO BIDP PRN Constipation 06/22/23 Rx Lax) #60 tabs New Prescriptions to Start Prescriptions: Riya Mata sennosides [Senna Lax] Riya Monroe Allergies Allergy/AdvReac Type Severity Reaction Status Date / Time No Known Allergies Allergy Verified 06/14/23 09:04 Discharge Plan Disposition Patient Disposition: Home, Self-Care Discharge Order Discharge Orders: Discharge Order (Routine); Ordered 06/22/23 Ordered By: Riya Saenz
== END 2023-06-22 12:30 | disposition home or self-care (01) | DRG 785 ==
PROVIDERS: Admitting Provider Obstetrics & Gynecology; Visit Provider Obstetrics & Gynecology
PROC: 10D00Z1 Extraction of Products of Conception, Low, Open Approach (ICD-10-PCS; principal; 2023-06-20 07:30)
DX: O34.211 Maternal care for low transverse scar from previous cesarean delivery (principal); Z3A.39 39 weeks gestation of pregnancy; Z37.0 Single live birth; Z30.2 Encounter for sterilization; O69.81X0 Labor and delivery complicated by cord around neck, without compression, not applicable or unspecified; O99.334 Smoking (tobacco) complicating childbirth; F17.290 Nicotine dependence, other tobacco product, uncomplicated
CPT/HCPCS: 59620; 58611; 36415; 59025; 80053; 80305; 81001; 85025; 86850; 87086; 88302; 94761; C9290; G0283; J0131; J2405

== ENCOUNTER 2023-11-29 20:07 | Emergency (ER) | payer OTHER, SELFPAY ==
--- NOTE | 2023-11-29 20:51 | PC.NURSE ---
Patient was brought back to the triage Rm was ambulatory with a GCS of 15, vitals were obtained on patient and she was notified that when a room was available we would bring her back.
[2023-11-29 22:34] VITALS: BP 0/0; PULSE 0; RESP 0; TEMP -17.7; TEMP 0; O2SAT 0
== END 2023-11-29 22:35 | disposition left against medical advice (07) ==
LOC: ER 21:11
PROVIDERS: Emergency Provider Emergency Medicine; PCP Nurse Practitioner
DX: Z53.21 Procedure and treatment not carried out due to patient leaving prior to being seen by health care provider (principal)
CPT/HCPCS: 99211

== ENCOUNTER 2024-01-15 17:05 | Emergency (ER) | payer OTHER, SELFPAY ==
--- NOTE | 2024-01-15 17:23 | XR_ITS ---
PROCEDURE INFORMATION: Exam: XR Left Elbow Exam date and time: 01/15/2024 5:41 PM Age: 23 years old Clinical indication: Injury or trauma; Fall; Blunt trauma (contusions or hematomas); Elbow; Left; Additional info: Pain TECHNIQUE: Imaging protocol: Radiologic exam of the left elbow. Views: 3 or more views. COMPARISON: CR XR FOREARM LT 2V 01/15/2024 5:39 PM FINDINGS: Bones/joints: No acute fracture or malalignment. No joint effusion. Soft tissues: Normal. IMPRESSION: No acute osseous findings.
--- NOTE | 2024-01-15 17:23 | XR_ITS ---
PROCEDURE INFORMATION: Exam: XR Right Forearm Exam date and time: 01/15/2024 5:42 PM Age: 23 years old Clinical indication: Injury or trauma; Fall; Blunt trauma (contusions or hematomas); Arm, lower; Right; Additional info: Pain TECHNIQUE: Imaging protocol: Radiologic exam of the right forearm. Views: 2 views. COMPARISON: No relevant prior studies available. FINDINGS: Bones/joints: Nondisplaced radial head fracture. No dislocation. Joint effusion. Soft tissues: Mild posterior/medial elbow soft tissue swelling. IMPRESSION: Nondisplaced radial head fracture.
--- NOTE | 2024-01-15 17:23 | XR_ITS ---
PROCEDURE INFORMATION: Exam: XR Right Elbow Exam date and time: 01/15/2024 5:44 PM Age: 23 years old Clinical indication: Injury or trauma; Fall; Blunt trauma (contusions or hematomas); Elbow; Right; Additional info: Pain TECHNIQUE: Imaging protocol: Radiologic exam of the right elbow. Views: 3 or more views. COMPARISON: CR XR FOREARM RT 2V 01/15/2024 5:42 PM FINDINGS: Bones/joints: Nondisplaced radial head fracture. No significant depression of the articular surface. No dislocation. Elbow joint effusion. Soft tissues: Mild posterior/medial elbow soft tissue swelling. IMPRESSION: Nondisplaced radial head fracture.
--- NOTE | 2024-01-15 17:23 | XR_ITS ---
PROCEDURE INFORMATION: Exam: XR Facial Bones, Minimum of 3 Views, Complete Exam date and time: 01/15/2024 5:29 PM Age: 23 years old Clinical indication: Injury or trauma; Fall; Blunt trauma (contusions or hematomas); Orbit/periorbital; Left; Additional info: Pain TECHNIQUE: Imaging protocol: XR of the facial bones, minimum of 3 views. Complete exam. COMPARISON: No relevant prior studies available. FINDINGS: Sinuses: Well aerated. No opacification. Bones/joints: No identifiable acute fracture. Soft tissues: Unremarkable. IMPRESSION: No identifiable acute facial fracture. If there is persistent clinical concern for fracture, consider CT for further evaluation.
--- NOTE | 2024-01-15 17:23 | XR_ITS ---
PROCEDURE INFORMATION: Exam: XR Left Forearm Exam date and time: 01/15/2024 5:39 PM Age: 23 years old Clinical indication: Injury or trauma; Fall; Blunt trauma (contusions or hematomas); Arm, lower; Left; Additional info: Pain TECHNIQUE: Imaging protocol: Radiologic exam of the left forearm. Views: 2 views. COMPARISON: No relevant prior studies available. FINDINGS: Bones/joints: No acute fracture or malalignment. No elbow joint effusion. Soft tissues: Distal forearm soft tissue swelling. IMPRESSION: Distal forearm soft tissue swelling. No acute osseous findings.
--- NOTE | 2024-01-15 17:23 | XR_ITS ---
PROCEDURE INFORMATION: Exam: XR Ribs with PA Chest Exam date and time: 01/15/2024 5:33 PM Age: 23 years old Clinical indication: Chest wall pain; Bilateral TECHNIQUE: Imaging protocol: Radiologic exam of the bilateral ribs with PA chest. Views: 4 views COMPARISON: No relevant prior studies available. FINDINGS: Lungs: Unremarkable. No consolidation. Pleural spaces: Unremarkable. No pleural effusion. No pneumothorax. Heart/Mediastinum: Unremarkable. No cardiomegaly. Bones/joints: No displaced rib fracture. IMPRESSION: 1. No displaced rib fracture. 2. No acute pulmonary findings.
[2024-01-15 18:20] VITALS: BP 131/82; PULSE 89; RESP 18; TEMP 36.6; O2SAT 98; BMI 27.4
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
[2024-01-15 19:23] VITALS: BP 131/82; PULSE 89; RESP 18; TEMP 36.6; O2SAT 98
== END 2024-01-15 19:23 | disposition home or self-care (01) ==
PROVIDERS: Emergency Provider Nurse Practitioner; PCP Nurse Practitioner
DX: S52.124A Nondisplaced fracture of head of right radius, initial encounter for closed fracture (principal); R07.81 Pleurodynia; M79.601 Pain in right arm; M79.602 Pain in left arm; S00.12XA Contusion of left eyelid and periocular area, initial encounter; F17.210 Nicotine dependence, cigarettes, uncomplicated; Y04.2XXA Assault by strike against or bumped into by another person, initial encounter; Z56.0 Unemployment, unspecified
CPT/HCPCS: 70150; 71111; 73080; 73090; 99212; 99214; G0463